=== PATIENT | female | born 1995 | race Caucasian/White ===

== ENCOUNTER 2018-05-05 18:58 | Observation (INO) ==
[2018-05-05] MEDS ORDERED: Ringers Solution, Lactated 1,000 ML IVC ONE (19:56)
[2018-05-05 19:57] LABS: Bilirubin,Urine Small (Negative); Blood,Urine Negative (Negative); Clarity,Urine Cloudy (Clear); Color,Urine Dark Yellow (Yellow); Glucose,Urine (UA) Normal (Normal); Ketones,Urine Trace mg/dL (Negative); Leukocyte Esterase,Urine Negative (Negative); Nitrite,Urine Negative (Negative); Protein,Urine Trace mg/dL (Neg-Trace); Specific Gravity,Urine > 1.030 (1.010-1.025); Urobilinogen,Urine Normal (Normal)
[2018-05-05 19:58] LABS: Hyaline Casts,Urine None Seen per lpf (None-Few); Squamous Epithelial Cell,Urine Many per lpf (None-Few)
[2018-05-05 20:08] LABS: Amphetamine Screen,Urine Negative ng/mL (Cutoff=1000); Barbiturate Screen,Urine Negative ng/mL (Cutoff=200); Benzodiazepines Screen,Urine Negative ng/mL (Cutoff=200); Cannabinoid Screen,Urine Negative ng/mL (Cutoff = 50); Cocaine Screen,Urine Negative ng/mL (Cutoff= 300); Opiate Screen,Urine Negative ng/mL (Cutoff=300); Phencyclidine Screen,Urine Negative ng/mL (Cutoff=25)
[2018-05-05 20:14] LABS: Bacteria,Urine Moderate per hpf (None-Few); Mucus,Urine Moderate (Few)
--- NOTE | 2018-05-05 22:14 | OB/GYN Progress Note ---
Date of Encounter: 05/05/18 Time of Encounter: 22:11 - Assessment and Plan (1) 36 weeks gestation of Current Visit: Yes Status: Acute (2) Uterine contractions Current Visit: Yes Status: Acute No change on serial cervical exams, given 1 L fluid LR bolus due to patient with decreased oral intake today. Discharged home with labor and when to return to triage precautions. Discussed with patient need for adequate hydration during day, late duty work restriction given to lifting no greater than 10-15 pounds Subjective - Subjective Interval history: 36+6 weeks gestation presents to triage with complaints of contraction. Gestation states she was at work and started to have contractions. Reports good movement, denies vaginal bleeding or leaking of fluid. Antepartum ROS: movement normal, contractions, no loss of fluid, no vaginal bleeding Objective - Vital Signs Vital Signs: Intake and Output 05/05/18 05/05/18 05/05/18 07:59 15:59 23:59 Other: Weight 108.182 kg Patient Weight 05/05/18 23:59 Weight 108.182 kg - Exam FHR: auscultation normal FHR comments: Baseline 135 Abdomen: Present: soft, gravid Cervical dilation: 50/-2 per RN - Labs Labs: Abnormal lab results Urine Clarity Cloudy (Clear) A 05/05/18 19:41 Ur Specific [place] > 1.030 (1.010-1.025) H 05/05/18 19:41 Urine Ketones Trace mg/dL (Negative) H 05/05/18 19:41 Urine Bilirubin Small (Negative) H 05/05/18 19:41 Urine Microscopic RBC 3-5 per hpf (0-3) H 05/05/18 19:41 Urine Microscopic WBC 5-15 per hpf (0-3) H 05/05/18 19:41 Ur Squamous Epith Cells Many per lpf (None-Few) H 05/05/18 19:41 Urine Bacteria Moderate per hpf (None-Few) H 05/05/18 19:41 Urine Mucus Moderate (Few) H 05/05/18 19:41
== END 2018-05-05 22:10 | disposition home or self-care (01) ==
LOC: 1NENULAB
PROVIDERS: ADMIT Obstetrics & Gynecology; ATTEND Obstetrics & Gynecology

== ENCOUNTER 2018-05-20 13:00 | Inpatient (IN) ==
[2018-05-20] MEDS ORDERED: Famotidine 20 MG/2 ML VIAL IVP ONE (13:29)
[2018-05-20] MEDS ORDERED: Ringers Solution, Lactated 1,000 ML IVC ONE (13:29)
[2018-05-20] MEDS ORDERED: CeFAZolin Premix DUPLEX 2,000 MG/50 ML BAG IVPB ONE (13:29)
[2018-05-20] MEDS ORDERED: Metoclopramide 10 MG/2 ML VIAL IVP ONE (13:29)
[2018-05-20] MEDS ORDERED: Ringers Solution, Lactated 1,000 ML IVC SCH (13:30)
[2018-05-20] MEDS ORDERED: Ringers Solution, Lactated 1,000 ML ONE (13:37)
[2018-05-20 13:48] LABS: Hematocrit 36.4 % (35.3-44.9); Hemoglobin 12.4 g/dL (11.5-15.4); Immature Granulocytes % 0.6 % (0-4); Lymphocytes % 22.5 %; Mean Corpuscular HGB Conc 34.1 g/dL (31.6-35.5); Mean Corpuscular Volume 87.9 fL (83.0-100.0); Mean Platelet Volume 10.4 fL (9.4-12.4); Monocytes % 7.9 %; Platelet Count 230 K/mcL (140-400); Red Blood Count 4.14 M/mcL (3.82-4.97); Red Cell Distribution Width 13.7 % (11.5-14.5); Segmented Neutrophils % 66.9 %
[2018-05-20 13:49] LABS: Basophils % 0.2 %; Eosinophils # 0.2 K/mcL (0.0-0.6); Eosinophils % 1.9 %; Lymphocytes # 2.3 K/mcL (0.6-4.6); Monocytes # 0.8 K/mcL (0.0-1.3); Neutrophils # 6.8 K/mcL (1.6-8.9)
--- NOTE | 2018-05-20 14:20 | Anesthesia Evaluation PreOp ---
Date of Encounter: 05/20/18 Time of Encounter: 14:18 - Past History Planned Operation: Cardiac History: Denies any Significant Hx Pulmonary History: Denies Any Significant HX MEDICAL ARTIST History: Denies Any Significant HX Other Medical History: GERD Anesthesia History: No Prior Anesthetic Complications, Past Anesthesia (tonsil) : Yes Test: Positive Alcohol Use: none Drug use: none Medications and Allergies Flintstones Gummies 1 tab PO DAILY 05/05/18 [History] 3 Allergy/AdvReac Type Severity Reaction Status Date / Time No Known Allergies Allergy Verified 05/20/18 13:27 - Meds/Allergy Pre-op Review Medications Reviewed: Yes Allergies Reviewed: Yes Beta Blockers on Current Med List: No Anesthesia Results - Labs 05/20/18 13:29 Anesthesia Exam 117/88 78 16 fht 126 Height: 5'3" Weight: 240 NPO (# of Hours): 8 Pain Scale: 0 Pain Scale Used: Numeric (1 - 10) - HEENT Pupil (Motor): Pupils equal Mallampati: II Teeth: Normal Oral Opening: Greater than 3 - MEDICAL ARTIST LOC: Oriented MEDICAL ARTIST Motor: Normal RUE, Normal LUE, Normal RLE, Normal LLE, Normal Face MEDICAL ARTIST Sensory: Normal: RUE, LUE, RLE, LLE, Face - Cardiac Rhythm: Regular Murmur: None - Pulmonary Breath Sounds: bilateral Clear Respiratory Effort: Symmetrical Anesthesia Assess/Plan ASA Score: 2 Modified Fabiola Scale for Level of Consciousness: Cooperative, oriented, and tranquil Anesthetic Plan: Regional Autologous Blood: No Monitoring Plan: Standard Monitors Recovery Plan: PACU (risks discussed questions answered, consented)
[2018-05-20] MEDS ORDERED: *HR* Morphine Sulfate/PF 10 MG/10 ML AMPUL ONE (14:28)
[2018-05-20] MEDS ORDERED: *HR* FentaNYL (PF) 100 MCG/2 ML VIAL ONE (14:28)
--- NOTE | 2018-05-20 14:45 | Anesthesia Procedures ---
Date of Encounter: 05/20/18 Time of Encounter: 15:30 Procedures: Anesthesia - Epidural/Spinal Patient ID/Chart reviewed: Yes Patient examined: Yes OB Eval: Gestational age: 39 OB Eval: : 1 OB Eval: Hx Para: 0 OB Eval: Dilated at (cm): 2 OB Eval: Contractions: Non-stressed pattern Consent Obtained: Yes Supplemental Oxygen: None/Room Air Site Prep: Aseptic Technique, Sterile prep and drape, 0.5% Chlorhexidine/Alcohol Patient position: upright Local Anesthetic: Lidocaine 1% Amount of Local Anesthetic used: 3 Interspace Used: L2-L3 Loss of Resistance (RYDER): No Blood: No CSF: Yes Spinal Needle Gauge: 25 Spinal Dose: marcaine 12mg duramorph 0.25mg, fentanyl 10mcg Procedure: aseptic, csf x4 quads clear, letty well, effective Vitals + FHT's: 112/76 76 fht 133
--- NOTE | 2018-05-20 14:47 | OB/GYN History & Physical ---
Date of Encounter: 05/20/18 Time of Encounter: 14:45 Assessment and Plan (1) 39 weeks gestation of Current visit: Yes Status: Acute (2) Nellie breech presentation Current visit: Yes Status: Acute Qualifiers: Qualified Code(s): O32.1XX0 - Maternal care for breech presentation, not applicable or unspecified (3) S/P primary low transverse Current visit: Yes Status: Acute Patient scheduled for primary section. Informed consent obtained. History of Present Illness Chief complaint: scheduled HPI: Ms. Caicedo is a 23 year old female 1 at 39+ weeks scheduled for primary section for nellie breech presentation. Patient presented to labor and delivery. A repeat ultrasound performed showing infant to be in breech presentation. Patient continued to wish to proceed with her section. The risks of surgery have been discussed with patient per she understands the risks of anesthesia, bleeding, infection and damage to internal organs as well as infant. She has no drug allergies. She is currently on vitamins. She has no chronic medical conditions. Surgical history is negative. She has no history of abnormal Pap smears, STDs or pelvic infections. She has no history of abnormal breast findings. Socially she denies tobacco, alcohol, illicit drug use. Her family history significant for diabetes. Past Med Surg Social Fam HX - Past Medical History Medical history: no medical history Psychiatric history: no psych history - Past Surgical History Additional surgical history: tonsillectomy at age 19 - Social History Smoking Status: Never smoker Alcohol use: none Drug use: none - Family History Mother Living Status: Still Living Hx Family Cardiac Disorders: No Hx Family Respiratory Disorders: No Hx Family Cancer: No Hx Family GI Disorders: No Hx Family Genitourinary Disorders: No Hx Family Endocrine Disorder: No Hx Family Musculoskeletal Disorders: No Hx Family Neuromuscular Disorders: No Hx Family Neurologic Disorders: No Hx Family HEENT Disorders: No Hx Family Autoimmune Disorders: No Hx Family Reproductive Disorders: No Hx Family Medical Disorders: No Obstetrical History - Pregnancies : 1 Medications and Allergies Flintstones Gummies 1 tab PO DAILY 05/05/18 [History] 3 Allergy/AdvReac Type Severity Reaction Status Date / Time No Known Allergies Allergy Verified 05/20/18 13:27 Review of System OB All systems PM: reviewed and no additional remarkable complaints except as stated Exam - Constitutional Constitutional: well developed, well nourished, no acute distress, average body habitus - HEENT HEENT: PERRL - Neck Neck exam: normal inspection - Lungs Respiratory exam: CTAB - Cardiovascular Cardiovascular exam: RRR - Abdomen Abdomen: Present: bowel sounds normal - Extremities Extremities exam: full ROM, normal inspection - Uterus Uterus exam: Present: normal size Results Result Diagrams: 05/20/18 13:29 All other labs normal. - VTE Reasons for not Prescribing Prophylaxis: Treatment not Indicated - Low risk for VTE
[2018-05-20 15:04] LABS: Amphetamine Screen,Urine Negative ng/mL (Cutoff=1000); Barbiturate Screen,Urine Negative ng/mL (Cutoff=200); Benzodiazepines Screen,Urine Negative ng/mL (Cutoff=200); Cannabinoid Screen,Urine Negative ng/mL (Cutoff = 50); Cocaine Screen,Urine Negative ng/mL (Cutoff= 300); Opiate Screen,Urine Negative ng/mL (Cutoff=300); Phencyclidine Screen,Urine Negative ng/mL (Cutoff=25)
[2018-05-20] MEDS ORDERED: *HR* Oxytocin 10 UNIT/ML VIAL IM ONE (15:34)
[2018-05-20] MEDS ORDERED: Lidocaine -MPF 2% 5 ML VIAL ONE (15:34)
[2018-05-20] MEDS ORDERED: Ondansetron 4 MG/2 ML VIAL ONE (15:34)
[2018-05-20] MEDS ORDERED: Acetaminophen IV 1,000 MG/100 ML INFUS..BTL IVPB ONE (15:35)
[2018-05-20] MEDS ORDERED: *HR* Promethazine 25 MG/ML VIAL IVP PRN (15:35)
[2018-05-20] MEDS ORDERED: *HR* FentaNYL (PF) 100 MCG/2 ML VIAL IVP PRN (15:35)
[2018-05-20] MEDS ORDERED: *HR* OxyCODONE Immed Rel 5 MG TABLET PO PRN (15:35)
--- NOTE | 2018-05-20 16:10 | OB/GYN Procedure Note ---
Section - Date of procedure: 05/20/18 Preop diagnosis: breech Post-op diagnosis: same Procedure: section, primary low transverse Surgeon: Jv Baldwin Blood Loss: 500 Was there an therapy assistant present: Yes Consultant Rn: Selvin Wyatt Anesthesiologist: Mckayla Spencer Breaker Tender: Aravind Cannon Anesthesia Type: Spinal section complications: none Disposition: Post floor Specimens: Placenta - (s) Infant A Delivery Date: 05/20/18 Delivery Time: 15:32 Presentation: breech Route of delivery: breech extraction Gender: Female Viability: Viable Pounds: 7 Ounces: 8 Gram Weight: 3.415 kg at 1 minute: 8 at 5 minutes: 9 Shoulder Dystocia: not encountered Specimens collected: cord blood Placenta: spontaneous - Narrative Narrative: Patient was taken to the operating room with IV in place. She was given spinal anesthesia. She was then prepped and draped in the usual sterile fashion. Once adequate analgesia was achieved, a Pfannenstiel incision was made and carried sharply through the subtenons fatty tissue to the fascial layers reached. The fascia was then nicked in the midline and incised bilaterally with Liu scissors. It was then dissected vertically for adequate exposure. The rectus abdominis muscle creatures and separate the midline and the peritoneum sharply entered dissected vertically. A bladder blade was placed at the inferior margin of the incision. Bladder flap was developed. A bladder blade was placed over the bladder flap, and a low transverse incision was then made lower uterine segment. Fluid was clear. Infant was in nellie breech presentation. The was then delivered in the usual fashion without incidence. Infant cried medially upon delivery course cut to cut the is a boilermaker assembly and erection's attendance. Cord bloods obtained. The placenta was then delivered spontaneously. Uterine massage and lavage. The uterus was then delivered. Uterine lavage was performed. The uterine incision was then closed the Vicryl suture running locking fashion. 2 [id number] were placed for final hemostasis. At this point the uterus was replaced the pelvic cavity. The pelvic cavity was then rinsed thoroughly with sterile water 2 and is cauterized. The subfascial region was examined. There was no bleeding noted. The fascia was then closed with 0 Vicryl suture running nonlocking fashion. The suprafascial region was rinsed thoroughly with sterile water testing all bleeders cauterized the skin was closed laura.
[2018-05-20] MEDS ORDERED: Oxytocin 20 units/ LR 1000 mL 20 UNIT/1,000 ML BAG IVC ONE (17:08)
[2018-05-20] MEDS ORDERED: Sennosides 8.6 MG TABLET PO PRN (18:24)
[2018-05-20] MEDS ORDERED: Simethicone 80 MG TAB.CHEW PO PRN (18:24)
[2018-05-20] MEDS ORDERED: Acetaminophen 325 MG TABLET PO PRN (18:24)
[2018-05-20] MEDS ORDERED: Oxytocin 20 units/ LR 1000 mL 20 UNIT/1,000 ML BAG IVC SCH (18:24)
[2018-05-20] MEDS ORDERED: Metoclopramide 10 MG/2 ML VIAL IVP PRN (18:24)
[2018-05-20] MEDS ORDERED: Ondansetron 4 MG/2 ML VIAL IVP PRN (18:24)
[2018-05-20] MEDS: Ibuprofen 600 MG TABLET PO PRN (21:33)
[2018-05-21] MEDS ORDERED: CeFAZolin Premix DUPLEX 2,000 MG/50 ML BAG IVPB SCH
[2018-05-21] MEDS: Ibuprofen 600 MG TABLET PO PRN ×4 (03:50→22:39)
[2018-05-21 04:25] LABS: Basophils % 0.3 %; Eosinophils # 0.1 K/mcL (0.0-0.6); Hematocrit 34.3 % (35.3-44.9); Hemoglobin 11.7 g/dL (11.5-15.4); Immature Granulocytes % 0.4 % (0-4); Lymphocytes % 17.6 %; Mean Corpuscular HGB Conc 34.1 g/dL (31.6-35.5); Mean Corpuscular Hemoglobin 30.5 pg (28.0-33.3); Mean Corpuscular Volume 89.3 fL (83.0-100.0); Mean Platelet Volume 10.2 fL (9.4-12.4); Monocytes # 0.8 K/mcL (0.0-1.3); Monocytes % 6.6 %; Neutrophils # 8.4 K/mcL (1.6-8.9); Platelet Count 190 K/mcL (140-400); Red Blood Count 3.84 M/mcL (3.82-4.97); Red Cell Distribution Width 13.7 % (11.5-14.5); Segmented Neutrophils % 74.1 %
--- NOTE | 2018-05-21 08:38 | OB/GYN Progress Note ---
Date of Encounter: 05/21/18 Time of Encounter: 08:38 - Assessment and Plan (1) S/P section Current Visit: Yes Status: Acute Patient doing well. Patient reports having bronchitis for the last month. Rhonchi throughout on physical exam. She has taken a full course of azithromycin recently. Patient not hypoxic, not tachycardic, no sputum production. Do not suspect pneumonia at this time. Encouraged incentive spirometer use Continue management plan per protocol. Subjective - Subjective Principal diagnosis: section Interval history: Postop day one section due to nellie breech presentation. Patient states she is doing well. Reports voiding normally. Denies any passage of gas or stool. Does report that she is eating well though and is not having any nausea or vomiting. Patient states that her pain is well-controlled. Patient denies any headaches, blurry vision, lower extremity swelling. Patient denies any right upper quadrant abdominal pain. Reports that baby is nursing well. Patient also reports being diagnosed with bronchitis. Reports having a cough for the last month. States that she has been on azithromycin. Denies any worsening of the cough or sputum production. Denies having history of asthma or smoking. Denies shortness of breath or chest pain. Patient reports: appetite normal, voiding normally, pain well controlled : doing well, nursing well Objective - Vital Signs Latest vital signs: Vital Signs Temp Pulse Pulse Resp BP Pulse Ox 05/21/18 07:34 72 16 05/21/18 07:15 98.3 F 80 16 99/63 05/21/18 03:55 98.5 F 75 14 105/67 97 05/20/18 23:20 98.6 F 73 14 101/63 97 05/20/18 21:25 98.5 F 77 14 101/62 97 05/20/18 20:25 98.1 F 78 16 101/63 98 05/20/18 19:25 97.6 F 67 16 97/54 97 05/20/18 18:47 98 F 76 18 103/41 98 05/20/18 18:25 98.0 F 81 16 103/45 95 Intake and Output 05/20/18 05/21/18 05/21/18 23:59 07:59 15:59 Intake Total 100 / 100 500 / 500 Output Total 300 / 300 100 / 100 300 / 300 Balance -200 / -200 -100 / -100 200 / 200 Intake: IV Fluids 100 / 100 Ancef 2,000 MG In 0.9 % Sodium 100 / 100 Chloride 100 ML @ 200 mls/hr IVPB Q8HR [facility] Rx#:[id number] Oral 500 / 500 Output: Urine 300 / 300 Catheter 300 / 300 100 / 100 Other: Weight 107 kg 105.868 kg Patient Weight 05/21/18 23:59 Weight 105.868 kg - Exam Lungs: bilateral: rhonchi Chest: Normal S1, Normal S2 Extremities: Present: normal. Absent: tenderness, edema Abdomen: Present: normal appearance, soft. Absent: distention, tenderness Incision: Present: dressed Uterus: Present: normal. Absent: tenderness - Labs Labs: Laboratory Results - last 24 hr 05/20/18 05/20/18 05/21/18 13:29 13:29 04:06 WBC 10.2 11.3 H RBC 4.14 3.84 Hgb 12.4 11.7 Hct 36.4 34.3 L MCV 87.9 89.3 MCH 30.0 30.5 MCHC 34.1 34.1 RDW 13.7 13.7 Plt Count 230 190 MPV 10.4 10.2 Immature Gran % 0.6 0.4 Seg Neutrophils % 66.9 74.1 Lymphocytes % 22.5 17.6 Monocytes % 7.9 6.6 Eosinophils % 1.9 1.0 Basophils % 0.2 0.3 Neutrophils # 6.8 8.4 Lymphocytes # 2.3 2.0 Monocytes # 0.8 0.8 Eosinophils # 0.2 0.1 Basophils # 0.0 0.0 Urine Opiates Screen Negative Ur Barbiturates Screen Negative Ur Phencyclidine Scrn Negative Ur Amphetamines Screen Negative U Benzodiazepines Scrn Negative Urine Cocaine Screen Negative U Marijuana (THC) Screen Negative Ur Drug Screen Interp See Below
[2018-05-21] MEDS ORDERED: FLINTSTONES GUMMIES PO SCH (09:00)
[2018-05-21] MEDS ORDERED: Prenatal Vit/FA 1 EACH TABLET PO SCH (09:00)
[2018-05-21] MEDS: *HR* OxyCODONE/APAP 5/325 TABLET PO PRN ×2 (15:02→20:10)
[2018-05-22] MEDS: Ibuprofen 600 MG TABLET PO PRN (07:09)
[2018-05-22] MEDS: *HR* OxyCODONE/APAP 5/325 TABLET PO PRN (07:10)
[2018-05-22 07:55] VITALS: BP 101/67
--- NOTE | 2018-05-22 08:47 | Discharge Summary ---
Date of Encounter: 05/22/18 Time of Encounter: 08:43 - Discharge Diagnosis (1) S/P primary low transverse Priority: Primary Status: Acute Comments: Patient seen and examined at bedside today Mother and baby resting comfortably Notes intermittent cough that has persisted over the past month - pt s/p azithromycin; Denies fevers/chills, headaches, SOB, chest pain, N/V/D, dysuria Pain well controlled Ambulating without difficulty Voiding appropriately Tolerating regular diet Has passed bowel movement and flatus without difficulty Counseled on signs and symptoms of blues/ depression Plan to follow up with Dr. Stover for OCPs Plan to discharge home today - Discharge Medications Prescriptions: OxyCODONE/APAP 5/325 [Percocet 5/325 MG] 1 each PO Q4HR PRN 5 Days #30 tablet PRN Reason: Moderate pain 4-6 Ibuprofen [Motrin] 600 mg PO Q6HR PRN 14 Days #56 tablet PRN Reason: Cramping Docusate [Colace] 100 mg PO BID 14 Days #28 capsule Ferrous Sulfate 325 mg PO 0800 30 Days #30 tablet Home Medications: Flintstones Gummies 1 tab PO DAILY 05/05/18 [History] Acetaminophen [Tylenol] 325 mg PO Q6HR PRN tablet 05/22/18 [Rx] DiphenhydraMINE [Benadryl] 25 mg IVP Q6HR PRN vial 05/22/18 [Rx] Docusate [Colace] 100 mg PO BID 14 Days #28 capsule 05/22/18 [Rx] Ferrous Sulfate 325 mg PO 0800 30 Days #30 tablet 05/22/18 [Rx] Ibuprofen [Motrin] 600 mg PO Q6HR PRN 14 Days #56 tablet 05/22/18 [Rx] OxyCODONE/APAP 5/325 [Percocet 5/325 MG] 1 each PO Q4HR PRN 5 Days #30 tablet [Rx] Vit/FA 1 each PO DAILY tablet 05/22/18 [Rx] Allergies/Adverse Reactions: 3 Allergy/AdvReac Type Severity Reaction Status Date / Time No Known Allergies Allergy Verified 05/20/18 13:27 Data Procedures and tests throughout hospitalization: Laboratory Tests 05/20/18 05/20/18 05/21/18 13:29 13:29 04:06 WBC 10.2 11.3 H RBC 4.14 3.84 Hgb 12.4 11.7 Hct 36.4 34.3 L MCV 87.9 89.3 MCH 30.0 30.5 MCHC 34.1 34.1 RDW 13.7 13.7 Plt Count 230 190 MPV 10.4 10.2 Immature Gran % 0.6 0.4 Seg Neutrophils % 66.9 74.1 Lymphocytes % 22.5 17.6 Monocytes % 7.9 6.6 Eosinophils % 1.9 1.0 Basophils % 0.2 0.3 Neutrophils # 6.8 8.4 Lymphocytes # 2.3 2.0 Monocytes # 0.8 0.8 Eosinophils # 0.2 0.1 Basophils # 0.0 0.0 Urine Opiates Screen Negative Ur Barbiturates Screen Negative Ur Phencyclidine Scrn Negative Ur Amphetamines Screen Negative U Benzodiazepines Scrn Negative Urine Cocaine Screen Negative U Marijuana (THC) Screen Negative Ur Drug Screen Interp See Below Date of admission: 05/20/18 13:05 Primary care physician: Ancelmo Ge DO Discharging clinician: Solis Blake Anticipated date of discharge: 05/22/18 - Patient Status Disposition: Home, Self-Care Functional capacity at discharge: independent ambulation Overall status at discharge: patient is progressing back to baseline - Discharge Instructions Follow Up With: Ancelmo Ge DO [Primary Care Provider] - Jv Stover MD [Partnered Physician] - - Diet and Activity Activity: resume usual activities as tolerated Diet: advance to your usual diet Hospital Course Reason for admission: section Delivery: section Episiotomy: none Laceration: none Other procedures: none complications: none Discharge diagnosis: IUP at term delivered [place] baby: female Hospital course: This is a 23 y/o F at 24 weeks gestational age who presented for primary transverse section due to nellie breech presentation. Pt taken to OR where she delivered female , 7lbs 8oz, apgars 8/9. section proceeded without complications. Pt stable in . POD#1, mother and baby resting comfortably. Pt has had chronic cough for the past month. Completed course of antibiotics. POD#2, pt meeting all milestones. Cough improving. Plan to discharge home today. Time Attestation: Total time spent providing and/or coordinating discharge services: Time Spent: Less than 30 minutes - VTE Reasons for not Prescribing Prophylaxis: Treatment not Indicated - Low risk for VTE Documentation of Mechanical Device: Intermittent pneumatic compression device Exam - Constitutional Vitals: Temp Pulse Resp BP Pulse Ox 97.8 F 96 16 101/67 96 05/22/18 07:54 05/22/18 07:54 05/22/18 07:54 05/22/18 07:54 05/22/18 07:54 General appearance IM: cooperative, A&O X 3, pleasant, no acute distress - Respiratory Respiratory exam: Present: CTAB - Cardiovascular Cardiovascular exam IM: Present: RRR, +S1, +S2 - GI/Abdominal GI/Abdominal exam IM: normal bowel sounds, no peritoneal signs Incision: normal, dry, intact - Uterine Tone: Firm Uterus Position: 1 Finger Below Umbilicus - Extremities Exam Extremities exam IM: Present: full ROM, normal capillary refill, normal inspection, warm, radial pulses palpable and symmetrical - Neurological Exam Neurological exam: alert, oriented X3 - Psychiatric Additional comments: Counseled on signs and symptoms of blues/depression. Advised to seek medical attention with worsening signs/symptoms. - Other Additional findings: I examined this patient and my medical decision-making was reviewed with the Resident Physician. I agree with the documented findings, disposition and treatment plan as described except to the extent set forth below. KITTY Reeves
== END 2018-05-22 11:00 | disposition home or self-care (01) | DRG 766 ==
LOC: 1NENULAB 13:05 → 1NENUOBS 18:25
PROVIDERS: ADMIT Obstetrics & Gynecology; ATTEND Obstetrics & Gynecology

== ENCOUNTER → 2021-05-06 01:05 | Observation (INO) | END | disposition home or self-care (01) | LOC: 1NENULAB | PROVIDERS: ADMIT Obstetrics & Gynecology; ATTEND Obstetrics & Gynecology ==

== ENCOUNTER 2021-05-09 13:08 | Inpatient (IN) ==
[2021-05-09] MEDS ORDERED: Ringers Solution, Lactated 1,000 ML IVC ONE (13:31)
[2021-05-09] MEDS ORDERED: Famotidine 20 MG/2 ML VIAL IVP ONE (13:31)
[2021-05-09] MEDS ORDERED: Metoclopramide 10 MG/2 ML VIAL IVP ONE (13:31)
[2021-05-09] MEDS ORDERED: Oxytocin 20 units/ LR 1000 mL 20 UNIT/1,000 ML BAG IVC ONE (13:31)
[2021-05-09] MEDS ORDERED: CeFAZolin 2,000 MG/120 ML BAG IVPB ONE (13:31)
[2021-05-09] MEDS ORDERED: Oxytocin 20 units/ LR 1000 mL 20 UNIT/1,000 ML BAG IVC SCH ×2 (13:45→23:26)
[2021-05-09] MEDS ORDERED: Ringers Solution, Lactated 1,000 ML IVC SCH (13:45)
[2021-05-09 15:01] LABS: Influenza A PCR Negative (Negative); Influenza B PCR Negative (Negative); Resp. Syncytial Virus PCR Negative (Negative)
[2021-05-09 15:02] LABS: SARS-CoV-2 by PCR (In House) Negative (Negative)
[2021-05-09] MEDS ORDERED: *HR* FentaNYL (PF) 100 MCG/2 ML VIAL ONE (15:27)
[2021-05-09] MEDS ORDERED: *HR* Morphine Sulfate/PF 10 MG/10 ML AMPUL ONE (15:27)
[2021-05-09] MEDS ORDERED: Ondansetron 4 MG/2 ML VIAL ONE ×2 (15:30→16:33)
[2021-05-09] MEDS ORDERED: Ketorolac 30 MG/ML VIAL ONE ×2 (15:31→16:33)
[2021-05-09] MEDS ORDERED: Acetaminophen IV 1,000 MG/100 ML BAG IVPB ONE (15:31)
[2021-05-09 15:40] LABS: Hemoglobin 12.1 g/dL (11.5-15.4)
[2021-05-09 15:46] LABS: Basophils % 0.2 %; Eosinophils # 0.2 K/mcL (0.0-0.6); Eosinophils % 1.5 %; Hematocrit 35.7 % (35.3-44.9); Immature Granulocytes % 0.5 % (0-4); Immature Platelets 6.2 % (1.1-6.1); Lymphocytes # 1.9 K/mcL (0.6-4.6); Lymphocytes % 18.2 %; Mean Corpuscular HGB Conc 33.9 g/dL (31.6-35.5); Mean Corpuscular Hemoglobin 30.8 pg (28.0-33.3); Mean Corpuscular Volume 90.8 fL (83.0-100.0); Mean Platelet Volume 11.7 fL (9.4-12.4); Monocytes # 0.6 K/mcL (0.0-1.3); Neutrophils # 7.7 K/mcL (1.6-8.9); Red Blood Count 3.93 M/mcL (3.82-4.97); Red Cell Distribution Width 12.9 % (11.5-14.5); Segmented Neutrophils % 73.6 %; White Blood Count 10.4 K/mcL (4.3-11.1)
[2021-05-09 16:08] LABS: Platelet Count 229 K/mcL (140-400)
[2021-05-09 16:48] LABS: Amphetamine Screen,Urine Negative ng/mL (Cutoff=1000); Barbiturate Screen,Urine Negative ng/mL (Cutoff=200); Benzodiazepines Screen,Urine Negative ng/mL (Cutoff=200); Cannabinoid Screen,Urine Negative ng/mL (Cutoff = 50); Cocaine Screen,Urine Negative ng/mL (Cutoff= 300); Opiate Screen,Urine Negative ng/mL (Cutoff=300); Phencyclidine Screen,Urine Negative ng/mL (Cutoff=25)
[2021-05-09] MEDS: *HR* Nalbuphine 10 MG/ML AMPUL IV PRN ×2 (17:42→17:51)
[2021-05-09 23:08] VITALS: O2SAT 96
[2021-05-09] MEDS ORDERED: Metoclopramide 10 MG/2 ML VIAL IVP PRN (23:26)
[2021-05-09] MEDS ORDERED: Simethicone 80 MG TAB.CHEW PO PRN (23:26)
[2021-05-09] MEDS ORDERED: Ondansetron 4 MG/2 ML VIAL IVP PRN (23:26)
[2021-05-09] MEDS: Acetaminophen 325 MG TABLET PO SCH (23:41)
[2021-05-09] MEDS: Ibuprofen 600 MG TABLET PO SCH (23:41)
[2021-05-10] MEDS: ceFAZolin 2,000 MG in Water for inj. (sterile) 10 ML IVP SCH ×2 (00:36→08:02)
[2021-05-10] MEDS: metroNIDAZOLE 500 MG TABLET PO SCH ×2 (00:36→08:02)
[2021-05-10] MEDS ORDERED: Lanolin 7 G OINT...G. TP PRN (00:54)
[2021-05-10 04:10] LABS: Basophils % 0.1 %; Eosinophils # 0.1 K/mcL (0.0-0.6); Eosinophils % 0.5 %; Hematocrit 30.6 % (35.3-44.9); Immature Granulocytes % 0.7 % (0-4); Lymphocytes # 1.9 K/mcL (0.6-4.6); Lymphocytes % 13.3 %; Mean Corpuscular Hemoglobin 30.7 pg (28.0-33.3); Mean Corpuscular Volume 90.3 fL (83.0-100.0); Mean Platelet Volume 10.7 fL (9.4-12.4); Monocytes % 6.7 %; Neutrophils # 11.5 K/mcL (1.6-8.9); Platelet Count 211 K/mcL (140-400); Red Blood Count 3.39 M/mcL (3.82-4.97); Red Cell Distribution Width 12.8 % (11.5-14.5); Segmented Neutrophils % 78.7 %; White Blood Count 14.6 K/mcL (4.3-11.1)
[2021-05-10 04:15] LABS: Hemoglobin 10.4 g/dL (11.5-15.4)
[2021-05-10] MEDS ORDERED: *HR* HYDROcodone/Acet 5/325 mg TABLET PO ONE (04:30)
[2021-05-10] MEDS: Acetaminophen 325 MG TABLET PO SCH (08:02)
[2021-05-10] MEDS: Ibuprofen 600 MG TABLET PO SCH (08:02)
[2021-05-10] MEDS ORDERED: Prenatal Vit/FA 1 EACH TABLET PO SCH (09:00)
[2021-05-10] MEDS ORDERED: *HR* OxyCODONE Immed Rel 5 MG TABLET PO PRN (12:30)
[2021-05-10 16:04] VITALS: BP 111/72; PULSE 82; TEMP 98
== END 2021-05-10 17:11 | disposition home or self-care (01) | DRG 785 ==
LOC: 1NENULAB 13:08 → 1NENUOBS 05-10 02:12
PROVIDERS: ADMIT Obstetrics & Gynecology; ATTEND Obstetrics & Gynecology